=== PATIENT | female | born 1985 | race Caucasian/White ===

== ENCOUNTER 2016-05-22 18:02 | Emergency (ER) | payer OTHER ==
[~2016-05-22] VITALS: Ht 167.6 cm; Wt 109.1 kg
[~2016-05-22 18:02] MED LIST: DESYREL 100MG100 MG PO; LITHIUM 60600 MG/CAP PO; REGLAN 10MG10 MG/TAB PO; ULTRAM 50MG TAB50 MG PO; ZOFRAN8 MG PO; ZOLOFT 100MG100 MG PO
[2016-05-22 18:06] VITALS: BP 133/80; TEMP 97.4
[2016-05-22 19:05] VITALS: PULSE 88
[2016-05-22] MEDS ORDERED: PEPCID 20MG TAB20 MG PO (19:05)
[2016-05-22] MEDS ORDERED: PREDNISONE20 MG PO (19:05)
[2016-05-22] MEDS ORDERED: BENADRYL25 M2 PO (19:05)
== END 2016-05-22 19:10 | disposition home or self-care (01) ==
LOC: COL.ER 18:02
DX: L50.0 Allergic urticaria (principal)